=== PATIENT | male | born 1960 | race Caucasian/White ===

== ENCOUNTER 2017-02-13 13:29 | Emergency (ER) | payer SELFPAY ==
[~2017-02-13] VITALS: Ht 170.2 cm; Wt 80.0 kg
[2017-02-13 13:31] VITALS: BP 147/98
== END 2017-02-13 16:41 | disposition left against medical advice (07) ==
LOC: ER 13:33
DX: Z53.21 Procedure and treatment not carried out due to patient leaving prior to being seen by health care provider (principal)